=== PATIENT | male | born 2005 | race Caucasian/White ===

== ENCOUNTER 2024-04-18 03:13 | Emergency (ER) | payer OTHER ==
[~2024-04-18] VITALS: Ht 175.3 cm; Wt 59.0 kg
[2024-04-18] MEDS ORDERED: iohexol 300mg/ml 100ml inj. ONE (03:35)
[2024-04-18] MEDS: LIDOcaine 1% W/epiNEPHrine 1:100,000 20ml vial SQ ONE (03:45)
[2024-04-18 04:43] LABS: BASOPHILS % (AUTO) 0.2 % (0-1); EOSINOPHILS % (AUTO) 0 % (0-6); HEMATOCRIT 38.3 % (42.0-52.0); HEMOGLOBIN 12.7 g/dl (14.0-17.9); LYMPHOCYTES # (AUTO) 0.7 X10'3 (1.1-4.8); LYMPHOCYTES % (AUTO) 5.2 % (21-51); MEAN CORPUSCULAR HEMOGLOBIN 28.3 PG (27.0-31.0); MEAN CORPUSCULAR HGB CONC 33.1 g/dL (33.0-36.5); MEAN CORPUSCULAR VOLUME 85.6 FL (78-98); MEAN PLATELET VOLUME 8.2 FL (7.4-10.4); MONOCYTES # (AUTO) 0.7 X10'3 (0-0.9); MONOCYTES % (AUTO) 5.2 % (2-12); NEUTROPHILS # (AUTO) 12.3 X10'3 (1.8-7.7); NEUTROPHILS % (AUTO) 89.4 % (42-75); PLATELET COUNT 221 X10'3 (140-440); RED BLOOD COUNT 4.47 X10'6 (4.70-6.10); RED CELL DISTRIBUTION WIDTH 13.3 % (11.5-14.5); WHITE BLOOD COUNT 13.8 X10'3 (4.5-11.0)
[2024-04-18 05:24] LABS: ALBUMIN 4.6 G/DL (3.4-5.0); ANION GAP 7 (8-16); BLOOD UREA NITROGEN 11 MG/DL (7-18); BUN/CREATININE RATIO 10.9 (10.0-20.0); CALCIUM 9.4 MG/DL (8.5-10.1); CHLORIDE 102 MMOL/L (99-107); CREATININE 1.01 MG/DL (0.60-1.10); GLUCOSE 108 MG/DL (70-104); POTASSIUM 4.1 MMOL/L (3.5-5.1); SODIUM 137 MMOL/L (135-145); eCRCL 98 ML/MIN; eGFR > 90 ML/MIN
[2024-04-18 05:27] LABS: ETHANOL < 10 MG/DL (<10)
[2024-04-18 06:14] LABS: BILIRUBIN,URINE NEGATIVE (Neg); CLARITY,URINE CLEAR (Clear); COLOR,URINE STRAW (Yellow); GLUCOSE, URINE NEGATIVE (Neg); KETONES,URINE NEGATIVE (Neg); LEUKOCYTE ESTERASE ,URINE NEGATIVE (Neg); NITRITES, URINE NEGATIVE (Neg); OCCULT BLOOD,URINE NEGATIVE (Neg); PROTEIN,URINE NEGATIVE (Neg); UROBILINOGEN,URINE 0.2 E.U/dL (0.2-1.0)
[2024-04-18 06:16] LABS: URINE AMPHETAMINE SCREEN NEGATIVE (Neg); URINE BARBITUATE SCREEN NEGATIVE (Neg); URINE BENZODIAZEPINES SCREEN NEGATIVE (Neg); URINE CANNABINOID SCREEN POSITIVE (Neg); URINE COCAINE SCREEN NEGATIVE (Neg); URINE METHADONE SCREEN NEGATIVE (Neg); URINE OPIATE SCREEN NEGATIVE (Neg); URINE PHENCYCLIDINE SCREEN NEGATIVE (Neg)
[2024-04-18 06:26] LABS: UA COLLECTION TYPE CLN CATCH MIDSTREAM
[2024-04-18] MEDS ORDERED: CEPH-585 PO (06:39)
[2024-04-18] MEDS: cephalexin 250mg capsule PO ONE (07:09)
[2024-04-18 07:22] VITALS: BP 171/96; PULSE 66; RESP 19; TEMP 98.2; O2SAT 97
== END 2024-04-18 07:27 ==
LOC: ER 03:15 → EEVIPCON 03:15 → ER 07:27
DX: S01.81XA Laceration without foreign body of other part of head, initial encounter (principal); S80.811A Abrasion, right lower leg, initial encounter; S80.212A Abrasion, left knee, initial encounter; Z79.2 Long term (current) use of antibiotics; V49.88XA Car occupant (driver) (passenger) injured in other specified transport accidents, initial encounter; Y93.89 Activity, other specified; Y92.89 Other specified places as the place of occurrence of the external cause; Y99.8 Other external cause status
CPT/HCPCS: 12011; 36415; 70450; 71260; 72125; 74177; 80048; 80305; 80320; 81003; 85025; 99285; J7030; Q9967; A6258; A6449